=== PATIENT | male | born 1990 | race Caucasian/White ===

== ENCOUNTER 2019-06-14 15:29 | Emergency (ER) | payer OTHER ==
--- NOTE | 2019-06-14 15:36 | ED Physician Documentation ---
PD HPI LOWER EXT INJURY - Stated complaint Stated Complaint: RIGHT FOOT PX - History obtained from History obtained from: Patient - History of Present Illness PD HPI LOW EXT INJURY LOCATION: Right, Toe (great toe and second toe) Type of injury: Blunt / blow (he was mowing grass and slipped, with foot sliding under the mower deck. Injury to first and second toe. He bandaged some and came directly here, not sure of extent of the injury.) Where injury occurred: Home Timing - onset: Today (just [employer]) Timing - details: Abrupt onset Worsened by: Moving, Palpating Associated symptoms: Swelling, Other (some bleeding from tips of toes, but unclear the injury.). No: Weakness, Numbness Contributing factors: No: Prior ortho surgery Recently seen: Not recently seen Review of Systems Constitutional: denies: Fever, Chills Nose: denies: Rhinorrhea / runny nose, Congestion Throat: denies: Sore throat Respiratory: denies: Cough PD PAST MEDICAL HISTORY - Past Medical History Past Medical History: No - Present Medications Home Medications: Ambulatory Orders Medication Instructions Recorded Confirmed Hydrocodone/Acetaminophen [Cantril 1 each PO Q6H PRN #15 tablet 06/14/19 5-325 Tablet] Ibuprofen [Motrin] 600 mg PO TID PRN #25 tab 06/14/19 - Allergies Allergies/Adverse Reactions: Allergies Allergy/AdvReac Type Severity Reaction Status Date / Time No Known Drug Allergies Allergy Verified 06/14/19 15:48 PD ED PE NORMAL - Vitals Vital signs reviewed: Yes - General General: Alert and oriented X 3, Well developed/nourished - Derm Derm: Normal color, Warm and dry - Extremities Extremities: Other (right foot with injury to great and second toe. The second toe has tender at tip with avulsion of the nail and minimal lac of nailbed. No exposure of the bone. Minimal bleeding and not grossly contaminated. Cleaned well with NS. The proximal toe is not tender. The great toe has small lac at corner of nailbed, but nail intact. No laceration plantar aspect. There is swelling of the distal phalanx and a linear purple contusion plantar aspect without laceration. No gross deformity of toe other than swelling at this time. Normal sensation at tip. Able to move flex and extend though hurts. Base of toe not tender. ) - Neuro Neuro: Alert and oriented X 3, No motor deficit, No sensory deficit, Normal speech Results - Vitals Vitals: Vital Signs - 24 hr 06/14/19 06/14/19 15:45 17:16 Temperature 36.4 C L Heart Rate 78 84 Respiratory 16 16 Rate Blood Pressure 163/91 H 149/72 H O2 Saturation 98 99 Oxygen O2 Source Room air - Rads (name of study) toes right foot Radiology: Prelim report reviewed (fractures distal phalanx great toe. ), See rad report PD MEDICAL DECISION MAKING - ED course Complexity details: reviewed results, considered differential (he has fracture of great toe distal phalanx that may need some repair, but will need swelling to decrease. Nail avulsion second toe and just small lac at nailbed corner on great toe, so not an open fracture. ), d/w patient Departure - Departure Disposition: 01 Home, Self Care Clinical Impression: Fractured great toe Qualifiers: Encounter type: initial encounter Fracture type: closed Phalanx: distal Fracture alignment: displaced Laterality: right Qualified Code(s): S92.421A - Displaced fracture of distal phalanx of right great toe, initial encounter for closed fracture Nail avulsion of toe Qualifiers: Encounter type: initial encounter Qualified Code(s): S91.209A - Unspecified open wound of unspecified toe(s) with damage to nail, initial encounter Condition: Stable Record reviewed to determine appropriate education?: Yes Instructions: ED Fx Foot Follow-Up: [facility] [Provider Group] Prescriptions: Hydrocodone/Acetaminophen [Cantril 5-325 Tablet] 1 each PO Q6H PRN #15 tablet PRN Reason: Pain Ibuprofen [Motrin] 600 mg PO TID PRN #25 tab PRN Reason: Pain Comments: Use a firm soled shoe to reduce motion around the toe. Crutches for nonweightbearing or partial weightbearing as needed for comfort. The toe fracture may line up better once the swelling is down. Elevate ice and rest the toe often to reduce swelling over the next few days. Follow-up with orthopedics later this week, [facility] tell them you have a broken toe that we suggest needs orthopedic evaluation. It is possible it might need some pinning or realignment if it does not line up better when the swelling decreases. Ibuprofen 3 times a day with food to reduce pain and inflammation. Add Tylenol or hydrocodone if needed for pain. Forms: Activity restrictions Discharge Date/Time: 06/14/19 17:17
[2019-06-14] MEDS ORDERED: IBUPROFEN 600 MG TABLET PO STA (16:18)
[2019-06-14] MEDS ORDERED: HYDROcod/ACETAM 5/325 MG TABLET PO STA (16:18)
--- NOTE | 2019-06-14 17:06 | XRAY Report ---
Reason: toes struck with lawnmower blade Procedure Date: 06/14/2019 Accession Number: [id number] / [id number] Procedure: XR - Toe(s) RT CPT Code: Final Report FULL RESULT: EXAM: RIGHT TOE RADIOGRAPHY EXAM DATE: 06/14/2019 04:33 PM. CLINICAL HISTORY: Toes struck with lawnmower blade. COMPARISON: None. TECHNIQUE: 3 views. FINDINGS: Bones: Intra-articular moderately comminuted and mildly displaced fractures through the base as well as through the mid to distal aspect of the right great toe. No other fracture seen. Joints: Normal. No subluxations. Soft Tissues: Soft tissue swelling. IMPRESSION: Intra-articular moderately comminuted and mildly displaced fractures through the base as well as through the mid to distal aspect of the right great toe. RADIA
[2019-06-14 17:17] VITALS: BP 149/72
== END 2019-06-14 17:17 | disposition home or self-care (01) ==
LOC: ED 15:29
DX: S92.411A Displaced fracture of proximal phalanx of right great toe, initial encounter for closed fracture (principal); S92.421A Displaced fracture of distal phalanx of right great toe, initial encounter for closed fracture; S91.214A Laceration without foreign body of right lesser toe(s) with damage to nail, initial encounter; X58.XXXA Exposure to other specified factors, initial encounter; Y93.H2 Activity, gardening and landscaping; Y92.007 Garden or yard of unspecified non-institutional (private) residence as the place of occurrence of the external cause
CPT/HCPCS: 73660; 99283; A9270

== ENCOUNTER 2021-05-30 09:50 | Outpatient (CLI) | payer OTHER ==
--- NOTE | 2021-05-30 15:15 | MRI Report ---
PROCEDURE: Shoulder LT W/O INDICATIONS: SHOULDER PAIN TECHNIQUE: Noncontrast oblique coronal T2 fast spin echo with fat saturation, oblique sagittal T1 spin echo and T2 fast spin echo with fat saturation, axial T1 spin echo and T2 fast spin echo with fat saturation t hrough the shoulder. COMPARISON: None. FINDINGS: Image quality: Excellent. Rotator cuff: Mild supraspinatus and infraspinatus tendinosis. The teres minor tendon is intact. Ther e is mild subscapularis tendinosis. No significant rotator cuff muscle atrophy is seen. Bones and bursae: No acute trabecular bone injury. Small chronic traction cystic changes are seen in the posterosuperior humeral head. No focal glenohumeral cartilage loss is seen. Mild to moderate dege nerative changes are seen at the acromioclavicular joint. No significant subacromial/subdeltoid bursa l fluid. A physiologic amount of glenohumeral joint fluid is present. Capsule and soft tissues: Nondisplaced tearing of the posterior to the posteroinferior labrum with a small 2 to 3 mm paralabral cysts. The biceps long head tendon is displaced medially from the bicipita l groove and appears to be located along the bursal surface of the distal subscapularis tendon. Findi ngs are consistent with prior full-thickness tearing of the transverse ligament. There is partial eff acement of the normal fat in the rotator interval. The inferior glenohumeral ligament appears mildly thickened, which may be secondary to internal rotation of the humerus during the exam. IMPRESSION: 1.Medial subluxation of the biceps long head tendon located superficial to the distal subscapularis t endon and anterior to the glenohumeral joint line. There is presumed tearing of the transverse ligame nt at the intertubercular groove. 2.Mild rotator cuff tendinosis involving the supraspinatus, infraspinatus, and subscapularis tendons. No full-thickness rotator cuff tendon tear is seen. 3.Nondisplaced tearing of the posterior to posteroinferior labrum with multiple tiny 2 to 3 mm parala bral cysts. 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 Reviewed by: Wally Rodriges MD on 05/30/2021 3:13 PM PDT Approved by: Wally Rodriges MD on 05/30/2021 3:13 PM [facility] Station ID: [id number]
== END 2021-05-30 09:51 | disposition home or self-care (01) ==
LOC: DI 09:50
PROVIDERS: ATTEND Student in an Organized Health Care Education/Training Program
DX: M75.82 Other shoulder lesions, left shoulder (principal); M19.012 Primary osteoarthritis, left shoulder; S43.492A Other sprain of left shoulder joint, initial encounter